=== PATIENT | male | born 1980 | race Caucasian/White ===

== ENCOUNTER 2016-09-05 16:17 | Emergency (ER) | payer MEDICAID ==
[~2016-09-05] VITALS: Ht 182.9 cm; Wt 81.6 kg
[~2016-09-05 16:17] MED LIST: ALPR0.25; SERT20CO
[2016-09-05 22:00] VITALS: BP 108/57
== END 2016-09-05 22:21 | disposition home or self-care (01) ==
LOC: ER 16:19
DX: S86.911A Strain of unspecified muscle(s) and tendon(s) at lower leg level, right leg, initial encounter (principal); J45.909 Unspecified asthma, uncomplicated; Z88.0 Allergy status to penicillin; X58.XXXA Exposure to other specified factors, initial encounter; Y93.89 Activity, other specified; Y99.8 Other external cause status; Y92.89 Other specified places as the place of occurrence of the external cause
CPT/HCPCS: 93971

== ENCOUNTER 2018-01-31 19:15 | Emergency (ER) | payer MEDICAID, OTHER ==
[~2018-01-31] VITALS: Ht 182.9 cm; Wt 88.5 kg
[~2018-01-31 19:15] MED LIST changes: -SERT20CO; +SERT20CO7
[2018-01-31 19:22] VITALS: BP 122/81
== END 2018-02-01 01:21 | disposition left against medical advice (07) ==
LOC: ER 19:15
DX: R51 Headache (principal); Z53.21 Procedure and treatment not carried out due to patient leaving prior to being seen by health care provider
CPT/HCPCS: 70450

== ENCOUNTER 2018-08-07 14:11 | Emergency (ER) | payer SELFPAY ==
[~2018-08-07] VITALS: Ht 182.9 cm; Wt 77.1 kg
[2018-08-07 14:35] VITALS: BP 119/67
[2018-08-07 15:50] LABS: Basophils # (auto) 0 uL; Basophils % (auto) 0.4 % (0.0-2.0); Eosinophils # (auto) 0.2 uL; Eosinophils % (auto) 2.5 % (0.0-7.0); Hemoglobin 15.9 g/dL (13.5-17.5); Lymphocytes # (auto) 1.9 uL; Lymphocytes % (auto) 28.2 % (10.0-50.0); Mean Corpuscular Hemoglobin 29.8 pg (28.0-32.0); Mean Corpuscular Hgb Conc. 33.1 g/dL (32.0-36.0); Monocytes # (auto) 0.8 uL; Monocytes % (auto) 11.3 % (0.0-12.0); Neutrophils # (auto) 3.9 uL; Neutrophils % (auto) 57.6 % (37.0-80.0); Platelet Count (auto) 250 10^3/uL (140-450); Red Blood Cells 5.33 10^6/uL (4.5-5.90); Red Cell Distribution Width 13.4 % (11.8-14.3); White Blood Cell 6.7 10^3/uL (4.4-10.8)
[2018-08-07 16:06] LABS: BUN/Creatinine Ratio 13.3; Calcium 9.1 mg/dL (8.5-10.1); Potassium 4.1 mmol/L (3.5-5.1)
== END 2018-08-07 17:00 | disposition home or self-care (01) ==
LOC: ER 14:13
DX: F41.1 Generalized anxiety disorder (principal); J45.909 Unspecified asthma, uncomplicated; Z88.0 Allergy status to penicillin
CPT/HCPCS: 36415; 80048; 84484; 85025; 85379; 93005

== ENCOUNTER 2019-01-09 14:00 | Emergency (ER) | payer MEDICAID ==
[~2019-01-09] VITALS: Ht 182.9 cm; Wt 70.3 kg
[2019-01-09 14:33] LABS: Basophils # (auto) 0 uL; Basophils % (auto) 0.5 % (0.0-2.0); Eosinophils # (auto) 0.3 uL; Eosinophils % (auto) 3.4 % (0.0-7.0); Hematocrit 47.5 % (41.0-53.0); Lymphocytes # (auto) 2.5 uL; Lymphocytes % (auto) 33.8 % (10.0-50.0); Mean Corpuscular Hemoglobin 30.7 pg (28.0-32.0); Mean Corpuscular Hgb Conc. 33.7 g/dL (32.0-36.0); Mean Corpuscular Volume 91.3 fL (80.0-100.0); Monocytes # (auto) 0.8 uL; Monocytes % (auto) 10.3 % (0.0-12.0); Neutrophils # (auto) 3.9 uL; Platelet Count (auto) 246 10^3/uL (140-450); Red Cell Distribution Width 13.3 % (11.8-14.3); White Blood Cell 7.5 10^3/uL (4.4-10.8)
[2019-01-09 14:56] LABS: Albumin 3.9 g/dL (3.4-5.0); Calcium 9.3 mg/dL (8.5-10.1); Potassium 4.1 mmol/L (3.5-5.1)
[2019-01-09 15:00] LABS: BUN/Creatinine Ratio 13.2; Total Protein 7.1 g/dL (6.4-8.2)
[2019-01-09 15:04] VITALS: BP 122/65
== END 2019-01-09 15:35 | disposition home or self-care (01) ==
LOC: ER 14:08
DX: L75.0 Bromhidrosis (principal); R20.2 Paresthesia of skin; R42 Dizziness and giddiness; J45.909 Unspecified asthma, uncomplicated; Z88.0 Allergy status to penicillin; Z79.899 Other long term (current) drug therapy
CPT/HCPCS: 36415; 80053; 85025

== ENCOUNTER 2019-07-26 01:28 | Emergency (ER) | payer MEDICAID ==
[~2019-07-26] VITALS: Ht 182.9 cm; Wt 75.7 kg
[2019-07-26 02:01] VITALS: BP 121/64
== END 2019-07-26 02:23 | disposition left against medical advice (07) ==
LOC: ER 01:30
DX: R05 Cough (principal); Z53.21 Procedure and treatment not carried out due to patient leaving prior to being seen by health care provider